=== PATIENT | female | born 1945 | race Caucasian/White ===

== ENCOUNTER → 2017-06-14 | Day surgery (SDC) | payer MEDICARE ==
[2017-06-11 12:27] LABS: BASOPHILS % 0.5 % (0.0-1.0); EOSINOPHILS # (AUTO) 0.1 (0.0-0.4); EOSINOPHILS % 0.8 % (0.0-6.0); HEMATOCRIT 39.9 % (34.2-44.1); HEMOGLOBIN 13.3 g/dL (12.0-16.0); LYMPHOCYTES # (AUTO) 1.4 (1.0-3.2); LYMPHOCYTES % 23.1 % (18.0-39.1); MEAN CORPUSCULAR HEMOGLOBIN 30.2 pg (28-32); MEAN CORPUSCULAR HGB CONC 33.3 g/dL (31-35); MEAN CORPUSCULAR VOLUME 90.7 fL (81-99); MONOCYTES # (AUTO) 0.4 (0.2-0.8); NEUTROPHILS # (AUTO) 4.2 (2.1-6.9); NEUTROPHILS % 68.4 % (38.7-80.0); PLATELET COUNT 222 x10e3/uL (140-360); RED CELL DISTRIBUTION WIDTH 12.2 % (11.7-14.4)
[~2017-06-14] MED LIST: FENTANYL CITRATE/PF 100MCG/2 ML INJ ONE; LIDOCAINE HCL 2% LOCAL INJ 5 ML SDV VIAL INJ ONE; LISINOPRIL-HCT1 EAC2 PO; LISINOPRIL2.5 MG PO; METOCLOPRAMIDE HCL 10 MG/2ML VIAL ONE; MIDAZOLAM HCL 2 MG/2 ML VIAL ONE; PROPOFOL IV EMULSION 10 MG/ML 50 ML VIAL ONE
--- OUTSIDE RECORDS SUMMARY | 2017-06-14 11:20 | XMS REPORT ---
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 Allergies, Adverse Reactions, Alerts This patient has no known allergies or adverse reactions. Medications This patient has no known medications. Results Test Description Test Time Test Comments Text Results Atomic Results Result Comments MRI PELVIS WO [place] [address] Patient Name: COCO HAYES MR #: [id number] : 1945 Age/Sex: 70/F Req #: [id number] [facility] Physician: Ordered by: PRIYANKA HELLER M.D. Report #: [id number] Location: MRI Room/Bed: __ Procedure: [id number] MRI/MRI PELVIS WO Exam Date: 12/12/16 Exam Time: 1535 REPORT STATUS: Signed TECHNIQUE: Magnetic resonance imaging of the PELVIS was performed WITHOUT injected contrast using standard departmental protocols. HISTORY: Pain and fall, history of lesion. Back pain. Right-sided pain. Trouble walking. COMPARISON: MRI October 08, 2015 MRI on March 08, 2015 FINDINGS: Bone and bone marrow: No fracture or bone marrow edema. Stable lesions scattered throughout the pelvis including a 5 cm right iliac lesion which is T1 hypointense and T2 mixed hyper and hypointensity. Additional smaller lesion in the right and left sacral ala, left iliac bone, right and left superior acetabulum, and left pubis. Articular cartilage: Cartilage thinning without high-grade defect. Soft tissues: Iliopsoas tendon intact. Mild tendinosis of the gluteal insertions. No high-grade tear. Mild generalized muscle atrophy. IMPRESSION: No acute osseous or soft tissue abnormality. 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 Signed by: Dr. Efrain Blake M.D. on 12/13/2016 8:28 AM Dictated By: EFRAIN BLAKE MD, MD 7 Transcribed By: HAIR on 12/13/16827 COPY TO: PRIYANKA HELLER M.D.
--- NOTE | 2017-06-14 15:29 | Operative Report ---
DATE OF PROCEDURE: June 14, 2017 REFERRING PHYSICIAN: Dr. Ramona Betts PROCEDURE PERFORMED: Esophagogastroduodenoscopy with biopsies. INDICATIONS FOR EGD: Excessive belching, early satiety. MEDICATION: Patient was done under MAC. Please see anesthesiologist's note. PROCEDURE: With the patient in the left lateral decubitus position, the flexible fiberoptic Olympus gastroscope was introduced into the esophagus under direct visualization without any difficulty. There was some patchy erythema noted in the distal esophagus. A minute nodule was noted at the GE junction that was biopsied. The scope was then advanced with ease into the stomach, traversing a small sliding hiatal hernia. Mucosa overlying the antrum and the body revealed some diffuse erythema and mild to moderate edema, and biopsies were obtained and sent to stain for H. pylori. The pylorus was of normal contour and shape. It was intubated with ease, and the scope was advanced all the way to the 2nd portion of the duodenum. It was then withdrawn slowly. Mucosa overlying the proximal 2nd portion grossly appeared to be within normal limits. Multiple minute ulcers were noted in the duodenal bulb without active bleeding. The scope was then withdrawn back into the stomach and retroflexed. Mucosa overlying the fundus and the cardia appeared to be within normal limits. The scope was then straightened out. The stomach was decompressed. Scope was subsequently withdrawn. Patient tolerated the procedure well. IMPRESSION 1. Distal esophagitis. 2. Minute nodule at gastroesophageal junction, biopsied. 3. Small sliding hiatal hernia. 4. Gastritis, biopsied. Biopsies sent to stain for H. pylori. 5. Duodenal bulb ulcers, minute, multiple, without active bleeding or stigmata of recent hemorrhage. PLAN: Follow up histology. Initiate Protonix 40 mg 1 p.o. q.a.m. a.c. Job#: [id number] cc:RAMONA BETTS DO
== END | disposition home or self-care (01) ==
LOC: OR 11:18
PROVIDERS: ATTEND Internal Medicine Gastroenterology
DX: K21.0 Gastro-esophageal reflux disease with esophagitis (principal); K29.50 Unspecified chronic gastritis without bleeding; K26.9 Duodenal ulcer, unspecified as acute or chronic, without hemorrhage or perforation; K44.9 Diaphragmatic hernia without obstruction or gangrene; B96.81 Helicobacter pylori [H. pylori] as the cause of diseases classified elsewhere; I25.2 Old myocardial infarction; R07.89 Other chest pain; I10 Essential (primary) hypertension; Z01.810 Encounter for preprocedural cardiovascular examination; Z01.812 Encounter for preprocedural laboratory examination; Z85.528 Personal history of other malignant neoplasm of kidney; Z85.89 Personal history of malignant neoplasm of other organs and systems; Z90.5 Acquired absence of kidney; Z87.891 Personal history of nicotine dependence
CPT/HCPCS: 36415; 43239; 85025; 88305; 88312; 93005; J2001; J2250; J2765

== ENCOUNTER → 2018-05-06 | Day surgery (SDC) | payer MEDICARE ==
[2018-05-01 11:22] LABS: BASOPHILS % 0.7 % (0.0-1.0); EOSINOPHILS # (AUTO) 0.1 (0.0-0.4); EOSINOPHILS % 1.1 % (0.0-6.0); HEMATOCRIT 37.8 % (34.2-44.1); HEMOGLOBIN 12.5 g/dL (12.0-16.0); LYMPHOCYTES # (AUTO) 1.5 (1.0-3.2); LYMPHOCYTES % 26.7 % (18.0-39.1); MEAN CORPUSCULAR HEMOGLOBIN 30.1 pg (28-32); MEAN CORPUSCULAR HGB CONC 33.1 g/dL (31-35); MEAN CORPUSCULAR VOLUME 91.1 fL (81-99); MONOCYTES # (AUTO) 0.5 (0.2-0.8); NEUTROPHILS # (AUTO) 3.6 (2.1-6.9); NEUTROPHILS % 63.3 % (38.7-80.0); PLATELET COUNT 201 x10e3/uL (140-360); RED BLOOD COUNT 4.15 x10e6/uL (3.6-5.1); RED CELL DISTRIBUTION WIDTH 12.3 % (11.7-14.4)
[~2018-05-06] MED LIST changes: +BIOTIN2500 MCG PO; +ESMOLOL HCL 100MG/10ML 10 MG/ML VIAL ONE; -FENTANYL CITRATE/PF 100MCG/2 ML INJ ONE; +HYOSCYAMINE SULFATE 0.5 MG/ML INJ ONE; -LIDOCAINE HCL 2% LOCAL INJ 5 ML SDV VIAL INJ ONE; -METOCLOPRAMIDE HCL 10 MG/2ML VIAL ONE; -MIDAZOLAM HCL 2 MG/2 ML VIAL ONE; +ZANTAC150 MG PO
[2018-05-06 14:20] VITALS: BP 144/81
--- NOTE | 2018-05-06 14:55 | Operative Report ---
DATE OF PROCEDURE: May 06, 2018 REFERRING PHYSICIAN: Dr. Ramona Betts. PROCEDURE PERFORMED: Colonoscopy. INDICATIONS FOR COLONOSCOPY: Surveillance colonoscopy. Personal history of colon polyps. MEDICATION: Patient was done under MAC. Please see anesthesiologist's note. PROCEDURE: With the patient in the left lateral decubitus position, the flexible fiberoptic Olympus colonoscope was inserted into the rectum with ease and advanced through the distal sigmoid colon. It could not be advanced beyond the distal sigmoid due to a very sharply angulated and fixed sigmoid colon. It was subsequently withdrawn, and then the EGD scope was inserted and with some difficulty the area was negotiated and the scope was advanced all the way to the cecum. It was then withdrawn slowly. Mucosa overlying the cecum, ascending, transverse, descending and sigmoid grossly appeared to be within normal limits other than for some scattered diverticular disease which was more prominent in the sigmoid colon. The rectum appeared to be within normal limits. The scope was then retroflexed into the distal rectum and small internal hemorrhoids were noted, none of which was actively bleeding. The scope was then straightened out. It was subsequently withdrawn. Patient tolerated the procedure well. IMPRESSION: 1. Sharply angulated distal sigmoid colon negotiated only with the esophagogastroduodenoscopy scope. 2. Diverticulosis. 3. Internal hemorrhoids, none actively bleeding. PLAN: Initiate high-fiber low-fat diet. Initiate high-fiber supplement. Patient might benefit from a followup colonoscopy in 3 to 5 years. Job#: [id number] cc:RAMONA BETTS DO
== END | disposition home or self-care (01) ==
LOC: OR 10:46
PROVIDERS: ATTEND Internal Medicine Gastroenterology
DX: Z09 Encounter for follow-up examination after completed treatment for conditions other than malignant neoplasm (principal); K56.609 Unspecified intestinal obstruction, unspecified as to partial versus complete obstruction; K57.30 Diverticulosis of large intestine without perforation or abscess without bleeding; K64.8 Other hemorrhoids; K21.0 Gastro-esophageal reflux disease with esophagitis; I10 Essential (primary) hypertension; R00.1 Bradycardia, unspecified; I25.2 Old myocardial infarction; Z01.810 Encounter for preprocedural cardiovascular examination; Z01.812 Encounter for preprocedural laboratory examination; Z90.5 Acquired absence of kidney; Z85.528 Personal history of other malignant neoplasm of kidney; Z85.42 Personal history of malignant neoplasm of other parts of uterus; Z87.891 Personal history of nicotine dependence
CPT/HCPCS: 36415; 45378; 85025; 93005; J1980

== ENCOUNTER → 2020-08-17 | Day surgery (SDC) | payer MEDICARE ==
[2020-08-13 14:53] LABS: BASOPHILS % 0.4 % (0.0-1.0); EOSINOPHILS # (AUTO) 0.1 (0.0-0.4); EOSINOPHILS % 1.1 % (0.0-6.0); HEMATOCRIT 33.9 % (34.2-44.1); HEMOGLOBIN 10.9 g/dL (12.0-16.0); LYMPHOCYTES # (AUTO) 1.5 (1.0-3.2); LYMPHOCYTES % 30.9 % (18.0-39.1); MEAN CORPUSCULAR HEMOGLOBIN 29.1 pg (28-32); MEAN CORPUSCULAR HGB CONC 32.2 g/dL (31-35); MEAN CORPUSCULAR VOLUME 90.6 fL (81-99); MONOCYTES # (AUTO) 0.4 (0.2-0.8); NEUTROPHILS # (AUTO) 2.8 (2.1-6.9); NEUTROPHILS % 59.4 % (38.7-80.0); PLATELET COUNT 157 x10e3/uL (140-360); RED BLOOD COUNT 3.74 x10e6/uL (3.6-5.1); RED CELL DISTRIBUTION WIDTH 13.9 % (11.7-14.4)
[~2020-08-17] MED LIST changes: -ESMOLOL HCL 100MG/10ML 10 MG/ML VIAL ONE; -HYOSCYAMINE SULFATE 0.5 MG/ML INJ ONE; +LIDOCAINE HCL 2% LOCAL INJ 5 ML SDV VIAL INJ ONE; +LYRICA100 MG PO; +METOCLOPRAMIDE HCL 10 MG/2ML VIAL ONE; +METOCLOPRAMIDE10 MG PO; +OMEPRAZOLE40 MG PO; +PROPOFOL IV EMULSION 10 MG/ML 20 ML VIAL ONE; -PROPOFOL IV EMULSION 10 MG/ML 50 ML VIAL ONE
[2020-08-17 12:05] VITALS: BP 113/62
== END | disposition home or self-care (01) ==
LOC: OR 09:14
PROVIDERS: ATTEND Internal Medicine Gastroenterology
DX: K21.00 Gastro-esophageal reflux disease with esophagitis, without bleeding (principal); K29.50 Unspecified chronic gastritis without bleeding; K44.9 Diaphragmatic hernia without obstruction or gangrene; I25.10 Atherosclerotic heart disease of native coronary artery without angina pectoris; I10 Essential (primary) hypertension; R00.1 Bradycardia, unspecified; Z01.810 Encounter for preprocedural cardiovascular examination; Z01.812 Encounter for preprocedural laboratory examination; Z20.822 Contact with and (suspected) exposure to COVID-19; Z90.5 Acquired absence of kidney; Z85.528 Personal history of other malignant neoplasm of kidney; Z85.42 Personal history of malignant neoplasm of other parts of uterus
CPT/HCPCS: 36415; 43239; 85025; 88305; 88312; 93005; J2001; J2704; J2765; U0002

== ENCOUNTER → 2021-04-27 | Outpatient (CLI) | payer MEDICARE ==
[~2021-04-27] MED LIST changes: +HYDROCODON-ACE1 EA12 PO; -LIDOCAINE HCL 2% LOCAL INJ 5 ML SDV VIAL INJ ONE; -METOCLOPRAMIDE HCL 10 MG/2ML VIAL ONE; -PROPOFOL IV EMULSION 10 MG/ML 20 ML VIAL ONE
== END ==
LOC: CT 15:57
PROVIDERS: ATTEND Neurological Surgery
DX: R91.8 Other nonspecific abnormal finding of lung field (principal)
CPT/HCPCS: 71250

== ENCOUNTER 2021-04-28 07:18 | Observation (INO) | payer MEDICARE ==
[2021-04-25 12:42] LABS: BASOPHILS % 0.2 % (0.0-1.0); EOSINOPHILS # (AUTO) 0.1 (0.0-0.4); EOSINOPHILS % 0.9 % (0.0-6.0); HEMATOCRIT 37.2 % (34.2-44.1); HEMOGLOBIN 11.6 g/dL (12.0-16.0); LYMPHOCYTES # (AUTO) 1.3 (1.0-3.2); LYMPHOCYTES % 24.8 % (18.0-39.1); MEAN CORPUSCULAR HGB CONC 31.2 g/dL (31-35); MONOCYTES # (AUTO) 0.4 (0.2-0.8); MONOCYTES % 7.9 % (4.4-11.3); NEUTROPHILS # (AUTO) 3.5 (2.1-6.9); NEUTROPHILS % 66.2 % (38.7-80.0); PLATELET COUNT 175 x10e3/uL (140-360); RED CELL DISTRIBUTION WIDTH 12.9 % (11.7-14.4)
[2021-04-25 13:02] LABS: INR 0.95; PROTHROMBIN TIME 13.3 seconds (11.9-14.5)
[2021-04-25 13:10] LABS: ANION GAP 8.1 mmol/L (8-16); CALCIUM 9.1 mg/dL (8.4-10.2); CREATININE, SERUM 0.83 mg/dL (0.57-1.11); POTASSIUM 4.1 mmol/L (3.5-5.1)
[~2021-04-28] VITALS: Ht 157.5 cm; Wt 57.2 kg
[~2021-04-28 07:18] MED LIST changes: -HYDROCODON-ACE1 EA12 PO
[2021-04-28] MEDS ORDERED: SODIUM CHLORIDE 0.9% 50ML 50 ML ONE (08:52)
[2021-04-28] MEDS ORDERED: HYDROCODON-ACE1 EA12 PO (11:42)
[2021-04-28] MEDS ORDERED: OXYCODONE/ACETAMINOPHEN 5-325 1 EACH TABLET PO PRN (11:45)
[2021-04-28] MEDS ORDERED: PROMETHAZINE HCL (IM) 25 MG/ML VIAL IM PRN (11:45)
[2021-04-28] MEDS ORDERED: ACETAMINOPHEN 325 MG TAB PO PRN (11:45)
[2021-04-28] MEDS ORDERED: MAGNESIUM/ALUMINUM/SIMETHICONE 30 ML UDC PO PRN (11:45)
[2021-04-28] MEDS ORDERED: HYDROMORPHONE 2MG/ML 2 MG/ML ML IV PRN (11:45)
[2021-04-28] MEDS ORDERED: CARISOPRODOL 350 MG TAB PO PRN (11:45)
[2021-04-28] MEDS ORDERED: MORPHINE SULFATE 5 MG/ML VIAL IM PRN (11:45)
[2021-04-28] MEDS ORDERED: ONDANSETRON HCL INJ 2MG/ML 2ML 2 MG/ML VIAL IV PRN (11:45)
[2021-04-28] MEDS ORDERED: ROCURONIUM BROMIDE 10 MG/ML 5ML VIAL IV ONE (12:19)
[2021-04-28] MEDS ORDERED: POVIDONE IODINE 0.05% 0.05 % ML PO ONE (12:19)
[2021-04-28] MEDS ORDERED: LIDOCAINE HCL 2% LOCAL INJ 5 ML SDV VIAL INJ ONE (12:19)
[2021-04-28] MEDS ORDERED: DEXAMETHASONE SOD PHOS INJ 4 MG/ML SDV ONE (12:19)
[2021-04-28] MEDS ORDERED: PROPOFOL IV EMULSION 10 MG/ML 20 ML VIAL ONE (12:19)
[2021-04-28] MEDS ORDERED: EPHEDRINE SULFATE INJ 50 MG/ML VIAL ONE (12:19)
[2021-04-28] MEDS ORDERED: ONDANSETRON HCL INJ 2MG/ML 2ML 2 MG/ML VIAL ONE (12:19)
[2021-04-28] MEDS ORDERED: SEVOFLURANE INHAL SOLN 250 ML PEN BTL ONE (12:19)
[2021-04-28] MEDS ORDERED: FENTANYL CITRATE/PF 100MCG/2 ML INJ ONE (12:54)
[2021-04-28] MEDS: METOCLOPRAMIDE HCL 10 MG TAB PO SCH ×3 (13:00→21:34)
[2021-04-28 14:34] VITALS: BP 129/70
[2021-04-28] MEDS: PREGABALIN 50 MG CAP PO SCH ×2 (15:00→21:34)
[2021-04-28] MEDS: LACTATED RINGER'S 1,000 ML IV SCH ×2 (16:08→21:41)
[2021-04-28 16:45] VITALS: BP 126/82
[2021-04-28] MEDS: Cefazolin 1 GM in SODIUM CHLORIDE 0.9% 50ML 50 ML IV SCH (18:00)
[2021-04-28 20:29] VITALS: BP 116/51
[2021-04-28] MEDS ORDERED: ZOLPIDEM TARTRATE 5 MG TAB PO PRN (21:00)
[2021-04-28 21:10] VITALS: BP 116/51
[2021-04-29] VITALS: BP 111/58
[2021-04-29] MEDS: Cefazolin 1 GM in SODIUM CHLORIDE 0.9% 50ML 50 ML IV SCH ×2 (03:19→08:54)
[2021-04-29 04:00] VITALS: BP 98/52
[2021-04-29] MEDS: LACTATED RINGER'S 1,000 ML IV SCH (05:49)
[2021-04-29] MEDS: PREGABALIN 50 MG CAP PO SCH (08:49)
[2021-04-29 08:50] VITALS: BP 107/54
[2021-04-29] MEDS: METOCLOPRAMIDE HCL 10 MG TAB PO SCH (08:52)
[2021-04-29 08:57] VITALS: BP 98/52
[2021-04-29] MEDS ORDERED: HYDROCHLOROTHIAZIDE 25 MG TAB PO SCH (09:00)
[2021-04-29] MEDS ORDERED: LISINOPRIL 10 MG TAB PO SCH (09:00)
[2021-04-29 09:52] VITALS: BP 98/52
== END 2021-04-29 11:10 | disposition home or self-care (01) ==
LOC: OR 07:18 → PACU V 11:41 → MED/SURG 14:06
PROVIDERS: ADMIT Neurological Surgery; ATTEND Neurological Surgery
DX: M48.062 Spinal stenosis, lumbar region with neurogenic claudication (principal); Z20.822 Contact with and (suspected) exposure to COVID-19; I10 Essential (primary) hypertension; I25.10 Atherosclerotic heart disease of native coronary artery without angina pectoris
CPT/HCPCS: 36415; 63047; 63048 ×2; 71046; 72020; 80048; 85025; 85610; 85730; 86850; 86900; 88304; 88311; 93005; 96360; G0378 ×2; J0690 ×2; J1100; J2001; J2405; J2550; J2704; J3010; J7121 ×2; J8597 ×2; U0002

== ENCOUNTER 2021-06-15 17:37 | Emergency (ER) | payer MEDICARE ==
[~2021-06-15] VITALS: Ht 157.5 cm; Wt 57.2 kg
[~2021-06-15 17:37] MED LIST changes: +HYDROCODON-ACE1 EA12 PO
[2021-06-15] MEDS ORDERED: ASPIRIN 325 MG TAB PO ONE (18:45)
[2021-06-15 18:53] LABS: BASOPHILS % 0.5 % (0.0-1.0); EOSINOPHILS # (AUTO) 0.1 (0.0-0.4); EOSINOPHILS % 3.5 % (0.0-6.0); HEMATOCRIT 33.4 % (34.2-44.1); HEMOGLOBIN 10.6 g/dL (12.0-16.0); LYMPHOCYTES # (AUTO) 1.2 (1.0-3.2); MEAN CORPUSCULAR HEMOGLOBIN 29.4 pg (28-32); MEAN CORPUSCULAR HGB CONC 31.7 g/dL (31-35); MEAN CORPUSCULAR VOLUME 92.8 fL (81-99); MONOCYTES # (AUTO) 0.4 (0.2-0.8); MONOCYTES % 9.8 % (4.4-11.3); NEUTROPHILS % 53.9 % (38.7-80.0); PLATELET COUNT 159 x10e3/uL (140-360); RED CELL DISTRIBUTION WIDTH 14.7 % (11.7-14.4)
[2021-06-15 19:15] LABS: ALBUMIN 3.2 g/dL (3.5-5.0); ALBUMIN/GLOBULIN RATIO 1.1 (0.8-2.0); ANION GAP 10.5 mmol/L (8-16); CALCIUM 8.6 mg/dL (8.4-10.2); CREATININE, SERUM 0.8 mg/dL (0.57-1.11); POTASSIUM 3.5 mmol/L (3.5-5.1)
== END 2021-06-15 22:59 | disposition home or self-care (01) ==
LOC: ER 17:44
DX: R07.89 Other chest pain (principal); I10 Essential (primary) hypertension; I25.10 Atherosclerotic heart disease of native coronary artery without angina pectoris; D64.9 Anemia, unspecified; K21.9 Gastro-esophageal reflux disease without esophagitis; Z85.528 Personal history of other malignant neoplasm of kidney; Z85.42 Personal history of malignant neoplasm of other parts of uterus
CPT/HCPCS: 36415; 71045; 80053; 84484; 85025; 93005; 99283

== ENCOUNTER → 2021-09-30 | Outpatient (CLI) | payer MEDICARE ==
[~2021-09-30] MED LIST changes: +ALBUTEROL SULF 0.083% NEB SOLN 3 ML NEB ONE
== END ==
LOC: RESP 09:23
PROVIDERS: ATTEND Internal Medicine Critical Care Medicine
DX: R09.02 Hypoxemia (principal); R91.8 Other nonspecific abnormal finding of lung field; J44.9 Chronic obstructive pulmonary disease, unspecified; K21.9 Gastro-esophageal reflux disease without esophagitis; R91.1 Solitary pulmonary nodule; Z87.891 Personal history of nicotine dependence
CPT/HCPCS: 94060; 94640; 94729; 94799

== ENCOUNTER → 2022-05-10 | Outpatient (CLI) | payer MEDICARE ==
[~2022-05-10] MED LIST changes: -ALBUTEROL SULF 0.083% NEB SOLN 3 ML NEB ONE
== END ==
LOC: CT 11:11
PROVIDERS: ATTEND Internal Medicine Critical Care Medicine
DX: R09.02 Hypoxemia (principal); R91.8 Other nonspecific abnormal finding of lung field; J44.9 Chronic obstructive pulmonary disease, unspecified; K21.9 Gastro-esophageal reflux disease without esophagitis; R91.1 Solitary pulmonary nodule; D51.9 Vitamin B12 deficiency anemia, unspecified; Z87.891 Personal history of nicotine dependence
CPT/HCPCS: 71250

== ENCOUNTER → 2022-09-13 | Outpatient (CLI) | payer MEDICARE | LOC: RAD 09:04 | PROVIDERS: ATTEND Nurse Practitioner Family | DX: R09.02 Hypoxemia (principal); J44.9 Chronic obstructive pulmonary disease, unspecified; R91.1 Solitary pulmonary nodule; R91.8 Other nonspecific abnormal finding of lung field; K21.9 Gastro-esophageal reflux disease without esophagitis; D51.9 Vitamin B12 deficiency anemia, unspecified; Z87.891 Personal history of nicotine dependence | CPT/HCPCS: 93306 ==

== ENCOUNTER → 2024-02-26 | Outpatient (REF) | payer MEDICARE | LOC: RESP 13:27 → EDSTATUS 14:00 | PROVIDERS: ATTEND Nurse Practitioner Family | DX: J44.9 Chronic obstructive pulmonary disease, unspecified (principal); R91.8 Other nonspecific abnormal finding of lung field; J43.9 Emphysema, unspecified; K21.9 Gastro-esophageal reflux disease without esophagitis; R09.02 Hypoxemia; R91.1 Solitary pulmonary nodule; D51.9 Vitamin B12 deficiency anemia, unspecified; R94.2 Abnormal results of pulmonary function studies; M35.00 Sjogren syndrome, unspecified; Z87.891 Personal history of nicotine dependence | CPT/HCPCS: 94060; 94727; 94729 ==

== ENCOUNTER 2024-07-02 11:39 | Inpatient (IN) | payer MEDICARE ==
[2024-07-02] VITALS (17 sets, daily range): BP systolic 96–127; BP diastolic 63–89; PULSE 33–90; RESP 20–38; TEMP 97.8; O2SAT 90–100
[~2024-07-02] VITALS: Ht 157.5 cm; Wt 61.2 kg
[2024-07-02] MEDS: CEFEPIME 2 GM in SODIUM CHLORIDE 0.9% 100 ML IV ONE (12:48)
[2024-07-02] MEDS: SODIUM CHLORIDE 0.9% 1000ML 1,710 ML IV ONE (12:48)
[2024-07-02 12:51] LABS: BASOPHILS % 0.1 % (0.0-1.0); HEMATOCRIT 31.3 % (34.2-44.1); HEMOGLOBIN 9.7 g/dL (12.0-16.0); LYMPHOCYTES # (AUTO) 0.5 (1.0-3.2); MEAN CORPUSCULAR HEMOGLOBIN 29.6 pg (28-32); MEAN CORPUSCULAR VOLUME 95.4 fL (81-99); MONOCYTES # (AUTO) 1.7 (0.2-0.8); MONOCYTES % 10.9 % (4.4-11.3); NEUTROPHILS # (AUTO) 12.7 (2.1-6.9); NEUTROPHILS % 83.6 % (38.7-80.0); PLATELET COUNT 113 x10e3/uL (140-360); RED BLOOD COUNT 3.28 x10e6/uL (3.6-5.1); WHITE BLOOD COUNT 15.19 x10e3/uL (4.8-10.8)
[2024-07-02 13:00] LABS: CLARITY,URINE CLOUDY (CLEAR); COLOR,URINE BROWN (YELLOW); GLUCOSE, URINE NEGATIVE (NEGATIVE); KETONES,URINE NEGATIVE (NEGATIVE); LEUKOCYTE ESTERASE ,URINE NEGATIVE (NEGATIVE); NITRITE,URINE NEGATIVE (NEGATIVE); PH,URINE 5.5 (5 - 7); PROTEIN,URINE DIPSTICK >=300 (NEGATIVE)
[2024-07-02 13:01] LABS: BILIRUBIN,URINE MODERATE (NEGATIVE); URINE UROBILINOGEN 1 mg/dL (0.2 - 1)
[2024-07-02 13:03] LABS: INR 2.84; PROTHROMBIN TIME 31.2 seconds (11.9-14.5)
[2024-07-02 13:04] LABS: BACTERIA,URINE MANY /HPF; EPITHELIAL CELLS,URINE MODERATE /LPF; PARTIAL THROMBOPLASTIN TIME 39.8 seconds (23.8-35.5); RBC,URINE 21-50 /HPF (0-5); WBC,URINE (MAN) >50 /HPF (0-5)
[2024-07-02] MEDS ORDERED: SODIUM CHLORIDE 0.9% 1000ML 1,000 ML ONE (13:10)
[2024-07-02 13:13] LABS: ALBUMIN 3.3 g/dL (3.5-5.0); ALBUMIN/GLOBULIN RATIO 1.1 (0.8-2.0); ANION GAP 30.6 mmol/L (8-16); BILIRUBIN,TOTAL 3.2 mg/dL (0.2-1.2); CALCIUM 8.1 mg/dL (8.4-10.2); CREATININE, SERUM 2.04 mg/dL (0.57-1.11); POTASSIUM 4.6 mmol/L (3.5-5.1); TOTAL PROTEIN 6.2 g/dL (6.5-8.1)
[2024-07-02 13:18] LABS: CORONAVIRUS COVID-19 AG NEGATIVE (NEGATIVE); INFLUENZA A AG POSITIVE (NEGATIVE); INFLUENZA B AG NEGATIVE (NEGATIVE)
[2024-07-02] MEDS: MUPIROCIN 2% OINT 22 GM TUBE TOP SCH (13:45)
[2024-07-02] MEDS ORDERED: ONDANSETRON HCL INJ 2MG/ML 2ML 2 MG/ML VIAL IV PRN (13:45)
[2024-07-02] MEDS: VANCOMYCIN HCL 1.25 GM in SODIUM CHLORIDE 0.9% 250ML 250 ML IV ONE (14:07)
[2024-07-02] MEDS: SODIUM CHLORIDE 0.9% 1000ML 1,000 ML IV SCH (14:08)
[2024-07-02] MEDS: SODIUM CHLORIDE 0.9% 1000ML 1,000 ML IV ONE (14:44)
[2024-07-02 14:49] LABS: ACETAMINOPHEN < 3.0 ug/mL (10-30); ETHANOL < 10.0 mg/dL (0.0-10.0); SALICYLATE < 5.0 mg/dL (0-30)
[2024-07-02] MEDS: OSELTAMIVIR PHOSPHATE 75 MG CAP PO SCH (15:48)
[2024-07-02 18:02] LABS: ABG HCO3 14 mmol/L (22-26); ABG PCO2 26 mmHg (35-45); ABG PH 7.35 (7.35-7.45); ABG PO2 106 mmHg (80-105); ABG TCO2 15
[2024-07-02] MEDS: DEXTROSE 5% 1,000 ML IV SCH (18:02)
[2024-07-02 19:03] LABS: CREATININE,URINE RANDOM 221.67 mg/dL (47-110)
[2024-07-02 19:22] LABS: TOTAL PROTEIN, URINE 371.9 mg/dL (1-14)
[2024-07-03] VITALS (45 sets, daily range): BP systolic 111–147; BP diastolic 62–103; PULSE 84–98; RESP 16–44; TEMP 96.1–98.6; O2SAT 87–100
[2024-07-03 08:05] LABS: INR 3.09; PROTHROMBIN TIME 33.3 seconds (11.9-14.5)
[2024-07-03 08:06] LABS: ANION GAP 24.6 mmol/L (8-16); BILIRUBIN,TOTAL 3.6 mg/dL (0.2-1.2); CALCIUM 7.2 mg/dL (8.4-10.2); CREATININE, SERUM 2.59 mg/dL (0.57-1.11); POTASSIUM 4.6 mmol/L (3.5-5.1); TOTAL PROTEIN 5.9 g/dL (6.5-8.1)
[2024-07-03 09:01] LABS: BASOPHILS % 0.1 % (0.0-1.0); HEMATOCRIT 32.9 % (34.2-44.1); HEMOGLOBIN 10.4 g/dL (12.0-16.0); LYMPHOCYTES # (AUTO) 0.5 (1.0-3.2); LYMPHOCYTES % 3.1 % (18.0-39.1); MEAN CORPUSCULAR HEMOGLOBIN 29.5 pg (28-32); MEAN CORPUSCULAR HGB CONC 31.6 g/dL (31-35); MEAN CORPUSCULAR VOLUME 93.5 fL (81-99); MONOCYTES % 6.3 % (4.4-11.3); NEUTROPHILS # (AUTO) 13.8 (2.1-6.9); NEUTROPHILS % 86.7 % (38.7-80.0); PLATELET COUNT 104 x10e3/uL (140-360); RED BLOOD COUNT 3.52 x10e6/uL (3.6-5.1); RED CELL DISTRIBUTION WIDTH 16.3 % (11.7-14.4); WHITE BLOOD COUNT 15.95 x10e3/uL (4.8-10.8)
[2024-07-03] MEDS: FUROSEMIDE INJ 10 MG/ML 4 ML VIAL IV ONE (09:35)
[2024-07-03] MEDS: SODIUM BICARBONATE 8.4% VIAL 100 ML in DEXTROSE 5% 1,000 ML IV SCH (09:36)
[2024-07-03 15:10] LABS: HIV 1&2 AB SCREEN NON-REACTIVE (NONREACTIVE); HIV- 1 P24 AG SCREEN NON-REACTIVE (NONREACTIVE)
[2024-07-03 15:11] LABS: ABG HCO3 14 mmol/L (22-26); ABG PCO2 26 mmHg (35-45); ABG PH 7.35 (7.35-7.45); ABG PO2 106 mmHg (80-105); ABG TCO2 15
[2024-07-03 16:30] LABS: ANION GAP 21.2 mmol/L (8-16); CREATININE, SERUM 3.34 mg/dL (0.57-1.11); POTASSIUM 4.2 mmol/L (3.5-5.1)
[2024-07-03 21:10] LABS: HEPATITIS A ANTIBODY IGM (P) NR (NONREACTIVE); HEPATITIS B CORE IGM (P) NR (NONREACTIVE); HEPATITIS B SURFACE AG (P) NON-REACTIVE (NONREACTIVE); HEPATITIS C ANTIBODY NR
[2024-07-04] MEDS ORDERED: OSELTAMIVIR PHOSPHATE 30 MG CAPSULE PO SCH (09:00)
[2024-07-07 05:32] LABS: TOXOPLASMA IGG ANTIBODY <3.0
[2024-07-07 05:33] LABS: TOXOPLASMA IGM ANTIBODY <3.0
== END 2024-07-03 21:57 | disposition expired | DRG 871 ==
LOC: ER 12:04 → ERHOLD 13:35 → ICU 20:07
PROVIDERS: ADMIT Internal Medicine; ATTEND Internal Medicine
PROC: 3E0333Z Introduction of Anti-inflammatory into Peripheral Vein, Percutaneous Approach (ICD-10-PCS; principal; 2024-07-02)
PROC: 4A033R1 Measurement of Arterial Saturation, Peripheral, Percutaneous Approach (ICD-10-PCS; 2024-07-02)
PROC: 0T9B70Z Drainage of Bladder with Drainage Device, Via Natural or Artificial Opening (ICD-10-PCS; 2024-07-02)
DX: A41.51 Sepsis due to Escherichia coli [E. coli] (principal); J10.00 Influenza due to other identified influenza virus with unspecified type of pneumonia; R65.21 Severe sepsis with septic shock; J69.0 Pneumonitis due to inhalation of food and vomit; K72.00 Acute and subacute hepatic failure without coma; J15.9 Unspecified bacterial pneumonia; N17.9 Acute kidney failure, unspecified; N39.0 Urinary tract infection, site not specified; E87.0 Hyperosmolality and hypernatremia; E87.20 Acidosis, unspecified; D68.9 Coagulation defect, unspecified; Z11.52 Encounter for screening for COVID-19; Z66 Do not resuscitate; R34 Anuria and oliguria; E86.0 Dehydration; I11.0 Hypertensive heart disease with heart failure; I50.9 Heart failure, unspecified; R79.89 Other specified abnormal findings of blood chemistry; K21.9 Gastro-esophageal reflux disease without esophagitis; I25.10 Atherosclerotic heart disease of native coronary artery without angina pectoris; K76.0 Fatty (change of) liver, not elsewhere classified; I25.2 Old myocardial infarction; Z85.528 Personal history of other malignant neoplasm of kidney; Z90.5 Acquired absence of kidney; Z85.42 Personal history of malignant neoplasm of other parts of uterus; Z90.710 Acquired absence of both cervix and uterus; Z90.49 Acquired absence of other specified parts of digestive tract
CPT/HCPCS: 31720; 36415; 36600; 51700; 70450; 70486; 71045; 74176; 80048; 80053; 80320; 80329; 81001; 82570; 82805; 83605; 84156; 85025; 85610; 85730; 86777; 86778; 87040; 87086; 87186; 87390; 87449; 93005; 93306; 94799; 99285; G0433; G0435; J0692; J1940; J2470; J2543; J7030; J7050; J7070